=== PATIENT | male | born 1965 | race Caucasian/White ===

== ENCOUNTER 2021-01-15 07:31 | Day surgery (SDC) | payer BC ==
[2021-01-14 13:18] VITALS: BMI 29.9
[2021-01-15] MEDS ORDERED: ceFAZolin 2 GM/Dextrose 50 ML IVPB ONE (07:37)
[2021-01-15] MEDS ORDERED: Midazolam HCl 2 mg/2 ml Vial ONE (09:01)
[2021-01-15] MEDS ORDERED: EPINEPHrine 1 MG/ML AMP ONE (09:07)
[2021-01-15] MEDS ORDERED: Bupivacaine PF 0.5% 30 ML VIAL ONE (09:07)
[2021-01-15] MEDS ORDERED: Fentanyl 100 MCG/2 ML VIAL ONE (09:14)
[2021-01-15] MEDS ORDERED: Lidocaine 1% PF 5 ML VIAL ONE (09:27)
[2021-01-15] MEDS ORDERED: Ondansetron PF 4 MG/2 ML Vial ONE (09:27)
[2021-01-15] MEDS ORDERED: ePHEDrine 50 MG/ML VIAL ONE (09:27)
[2021-01-15] MEDS ORDERED: PHENYLEPHRINE-NS 100 MCG/ML 10 ML SYRINGE ONE (09:27)
[2021-01-15] MEDS ORDERED: PROPOFOL 200 MG/20 ML VIAL ONE (09:27)
[2021-01-15] MEDS ORDERED: Dexamethasone 20 MG/5 ML VIAL ONE (09:27)
== END 2021-01-15 11:45 | disposition home or self-care (01) ==
LOC: SDC 07:31
PROVIDERS: ATTEND Surgery
PROC: 0WUF0JZ Supplement Abdominal Wall with Synthetic Substitute, Open Approach (ICD-10-PCS; principal; 2021-01-15)
DX: K42.9 Umbilical hernia without obstruction or gangrene (principal); I10 Essential (primary) hypertension; E03.9 Hypothyroidism, unspecified; Z86.010 Personal history of colon polyps; Z79.82 Long term (current) use of aspirin; Z79.899 Other long term (current) drug therapy
CPT/HCPCS: C1781; J0171; J0690; J1100; J2250; J2405; J2704; J3010; J3490; S0020